=== PATIENT | female | born 2000 | race Caucasian/White ===

== ENCOUNTER 2023-03-10 19:20 | Emergency (ER) | payer MEDICAID ==
[2023-03-10 21:03] LABS: ESTIMATED GFR 132 mL/min (>60)
[2023-03-10] MEDS ORDERED: Vancomycin 125 MG Cap PO ONE (22:05)
== END 2023-03-10 22:35 | disposition home or self-care (01) ==
LOC: JP.ED 19:20
DX: A04.72 Enterocolitis due to Clostridium difficile, not specified as recurrent (principal); Z88.0 Allergy status to penicillin; Z77.22 Contact with and (suspected) exposure to environmental tobacco smoke (acute) (chronic)
CPT/HCPCS: 36415; 80053; 83690; 85025; 87046; 87493; 87899; 89055; 99284; A9270